=== PATIENT | male | born 1965 | race Hispanic/Latino ===

== ENCOUNTER 2021-04-28 02:33 | Emergency (ER) | payer BC ==
[~2021-04-28] VITALS: Ht 167.6 cm; Wt 149.7 kg
[2021-04-28] MEDS ORDERED: CARV25TA PO (02:41)
[2021-04-28] MEDS ORDERED: AMLO-258 PO (02:41)
[2021-04-28] MEDS ORDERED: METF500S7 PO (02:41)
[2021-04-28] MEDS ORDERED: LOSA50TA64 PO (02:41)
[2021-04-28] MEDS ORDERED: CHLO25TA3 PO (02:41)
[2021-04-28 03:14] LABS: APPEARANCE,URINE Cloudy (CLEAR); BILIRUBIN,URINE Negative (NEGATIVE); COLOR,URINE Yellow (YELLOW); GLUCOSE, URINE (UA) Negative (NEGATIVE); KETONES,URINE Negative (NEGATIVE); LEUKOCYTE ESTERASE ,URINE Small (NEGATIVE); NITRATE,URINE Negative (NEGATIVE); OCCULT BLOOD,URINE Large (NEGATIVE); PROTEIN,URINE Trace mg/dL (NEGATIVE)
[2021-04-28 03:22] LABS: BACTERIA,URINE None Seen /HPF (None Seen); RBC,URINE 51-100 /HPF (0-1); SQUAMOUS EPITHELIAL CELL,UR Rare /HPF (0-2)
[2021-04-28] MEDS ORDERED: KETOROLAC 30MG VIAL (30MG/ML) ONE (03:22)
[2021-04-28 03:24] LABS: BASOPHILS % (AUTO) 0.4 % (0.0-5.0); EOSINOPHILS % (AUTO) 2.1 % (0.0-8.0); HEMATOCRIT 45.6 % (42-54); LYMPHOCYTES % (AUTO) 16.1 % (21.0-51.0); MEAN CORPUSCULAR HEMOGLOBIN 30.1 pg (27.0-33.0); MEAN CORPUSCULAR HGB CONC 33.8 g/dL (32.0-36.0); MEAN CORPUSCULAR VOLUME 89.1 fL (79-99); MONOCYTES % (AUTO) 6.4 % (3.0-13.0); NEUTROPHILS % (AUTO) 74.7 % (40.0-77.0); PLATELET COUNT (AUTO) 298 K/uL (130-400); RED BLOOD CELL COUNT(AUTO) 5.12 MIL/uL (4.50-6.20); RED CELL DISTRIBUTION WIDTH 13.7 % (11.0-15.5)
[2021-04-28] MEDS ORDERED: KETOROLAC 30MG VIAL (30MG/ML) IV ONE (03:30)
[2021-04-28 03:32] LABS: CREATININE 1.2 mg/dL (0.5-1.5); POTASSIUM 3.6 mmol/L (3.5-5.1)
[2021-04-28 03:37] LABS: BILIRUBIN,TOTAL 0.4 mg/dL (0.2-1.0); TOTAL PROTEIN, SERUM 8.4 g/dL (6.0-8.3)
[2021-04-28 06:04] VITALS: BP 141/75
[2021-04-28] MEDS ORDERED: DICL25TA11 PO (06:13)
[2021-04-28] MEDS ORDERED: TAMS-1 PO (06:13)
== END 2021-04-28 06:32 | disposition home or self-care (01) ==
LOC: EDH 02:33
DX: N20.0 Calculus of kidney (principal); E11.9 Type 2 diabetes mellitus without complications; I10 Essential (primary) hypertension; Z79.1 Long term (current) use of non-steroidal anti-inflammatories (NSAID); Z79.84 Long term (current) use of oral hypoglycemic drugs; Z79.899 Other long term (current) drug therapy
CPT/HCPCS: 36415; 74176; 80053; 81001; 85025; 96374; 99284; J1885